=== PATIENT | female | born 1975 | race Caucasian/White ===

== ENCOUNTER 2016-11-15 23:08 | Emergency (ER) | payer BC ==
--- NOTE | 2016-11-15 23:12 | PDOC ---
History of Present Illness - General History Source: Patient Exam Limitations: No Limitations - History of Present Illness Initial Comments: 11/15/16 23:58 The patient is a 41 year old, kiswahili speaking, female who is 6 weeks , with no significant past medical history, presenting to the Emergency Department with vaginal bleeding. The patient reports that she was having sex with her boyfriend earlier tonight when she noticed vaginal bleeding. She admits that the bleeding was minimal and describes the blood as red. She admits that the bleeding has stopped since she arrived to the ED. She reports that her most recent ultrasound was last week, when she was reported as 6 weeks and 2 days . Her next ultrasound is scheduled for Friday. She is being followed by an OBGYN and has care. The patient denies abdominal pain, or vaginal pain. Patient denies dysuria, urinary frequency, and hematuria. Patient denies dizziness, or lightheadedness. Patient denies nausea, vomiting, and diarrhea. <Marce Wagoner - Last Filed: 11/15/16 23:58> <Vanesa Loo - Last Filed: 11/17/16 05:02> - General Stated Complaint: 6 WEEKS /BLEEDING Time Seen by Provider: 11/15/16 23:11 Past History <Marce Wagoner - Last Filed: 11/15/16 23:58> - Psycho/Social/Smoking Cessation Hx Anxiety: No Suicidal Ideation: No Smoking Status: No Smoking History: Never smoked Number of Cigarettes Smoked Daily: 0 Hx Alcohol Use: No Substance Use Type: None <Vanesa Loo - Last Filed: 11/17/16 05:02> - Past Medical History Allergies/Adverse Reactions: Allergies Allergy/AdvReac Type Severity Reaction Status Date / Time No Known Drug Allergies Allergy Verified 11/15/16 23:46 SEAFOOD Allergy Difficulty Uncoded 11/15/16 23:24 Breathing Home Medications: Ambulatory Orders NK [No Known Home Medication] 11/15/16 Review of Systems - Review of Systems Able to Perform ROS?: Yes Comments:: 11/15/16 23:58 GENERAL/CONSTITUTIONAL: No fever or chills. No weakness. HEAD, EYES, EARS, NOSE AND THROAT: No change in vision. No ear pain or discharge. No sore throat. CARDIOVASCULAR: No chest pain or shortness of breath. RESPIRATORY: No cough, wheezing, or hemoptysis. GASTROINTESTINAL: No nausea, vomiting, diarrhea or constipation. GENITOURINARY: + vaginal bleeding. No dysuria, frequency, or change in urination. MUSCULOSKELETAL: No joint or muscle swelling or pain. No neck or back pain. SKIN: No rash NEUROLOGIC: No headache, vertigo, loss of consciousness, or change in strength/ sensation. ENDOCRINE: No increased thirst. No abnormal weight change. HEMATOLOGIC/LYMPHATIC: No anemia, easy bleeding, or history of blood clots. ALLERGIC/IMMUNOLOGIC: No hives or skin allergy. <Marce Wagoner - Last Filed: 11/15/16 23:58> *Physical Exam - Vital Signs Last Vital Signs Temp Pulse Resp BP Pulse Ox 97.1 F L 99 H 20 126/84 99 11/15/16 23:24 11/15/16 23:24 11/15/16 23:24 11/15/16 23:24 11/15/16 23:24 - Physical Exam Comments: 11/15/16 23:59 GENERAL: Awake, alert, and fully oriented, in no acute distress HEAD: No signs of trauma EYES: PERRLA, EOMI, sclera anicteric, conjunctiva clear ENT: Auricles normal inspection, hearing grossly normal, nares patent, oropharynx clear without exudates. Moist mucosa NECK: Normal ROM, supple, no lymphadenopathy, JVD, or masses LUNGS: Breath sounds equal, clear to auscultation bilaterally. No wheezes, and no crackles HEART: Regular rate and rhythm, normal S1 and S2, no murmurs, rubs or gallops ABDOMEN: Soft, nontender, normoactive bowel sounds. No guarding, no rebound. No masses EXTREMITIES: Normal range of motion, no edema. No clubbing or cyanosis. No cords, erythema, or tenderness NEUROLOGICAL: Cranial nerves II through XII grossly intact. Normal speech, normal gait SKIN: Warm, Dry, normal turgor, no rashes or lesions noted. <Marce Wagoner - Last Filed: 11/15/16 23:58> ED Treatment Course - LABORATORY CBC & Chemistry Diagram: 11/16/16 00:01 11/16/16 00:01 <Vanesa Loo - Last Filed: 11/17/16 05:02> Medical Decision Making - Medical Decision Making 11/15/16 23:54 Pt is approx 6-7 weeks . Last week at her [employer] [employer], ultrasound showed a 6 week 2 day fetus. Tonight after sex, pt realized she was spotting and she is worried. SHe has no pain and no dysuria. She doesn't know her blood type. She has a normal exam. She will have her labs checked in the ER. I will not send her for US, as she has her next appointment on this Friday, and she will have another ultrasound at that time. 11/17/16 05:01 Rh positive <Vanesa Loo - Last Filed: 11/17/16 05:02> *DC/Admit/Observation/Transfer - Attestations Scribe Attestion: 11/15/16 23:59 Documentation prepared by Marce Wagoner, acting as clinical specialist medical device for Vanesa Loo MD. <Marce Wagoner - Last Filed: 11/15/16 23:58> - Discharge Dispostion Admit: No <Vanesa Loo - Last Filed: 11/17/16 05:02> Diagnosis at time of Disposition: Threatened - Discharge Dispostion Disposition: HOME Condition at time of disposition: Stable - Referrals Referrals: Naman Castano MD [Primary Care Provider] - - Patient Instructions Printed Discharge Instructions: DI for Threatened - Post Discharge Activity Work/School Note: Back to Work
[2016-11-15 23:28] VITALS: BP 126/84; PULSE 99; TEMP 97.1; BMI 27.3
[2016-11-16 00:24] LABS: BASOPHIL 0.5 % (0-2.0); EOSINOPHIL 0.9 % (0-4.5); MCH 29.5 pg (25.7-33.7); MCHC 34.1 g/dl (32.0-36.0); MEAN CELL VOLUME 86.5 fl (80-96); MEAN PLT VOLUME 10.3 fl (7.5-11.1); NEUTROPHILS 72.8 % (42.8-82.8); PLATELET COUNT 203 K/MM3 (134-434); WHITE BLOOD COUNT 8.8 K/mm3 (4.0-10.0)
[2016-11-16 00:43] LABS: INR 1.02 (0.82-1.09); PROTHROMBIN TIME (PATIENT) 11.2 SEC (9.98-11.88)
[2016-11-16 00:52] LABS: ALBUMIN 3.5 g/dl (3.4-5.0); ALK PHOS 79 U/L (45-117); ANION GAP 12 (8-16); BILIRUBIN,TOTAL 0.1 mg/dL (0.2-1.0); CALCIUM 8.7 mg/dL (8.5-10.1); CO2 24 mmol/L (21-32); CREATININE 0.9 mg/dL (0.55-1.02); GLUCOSE,RANDOM 121 mg/dL (74-106); SGOT/AST 21 U/L (15-37); SGPT/ALT 34 U/L (12-78)
[2016-11-16] MEDS ORDERED: MAG HYDROX/AL HYDROX/SIMETH 30 ML UNIT-DOSE CUP PO ONE (01:46)
[2016-11-16] MEDS ORDERED: MAG HYDROX/AL HYDROX/SIMETH 30 ML UNIT-DOSE CUP ONE (01:46)
== END 2016-11-16 02:18 | disposition home or self-care (01) ==
LOC: JER 23:08
DX: O20.0 Threatened abortion (principal); Z3A.01 Less than 8 weeks gestation of pregnancy
CPT/HCPCS: 36415; 80053; 84702; 85025; 85610; 85730; 86850; 86900; 86901; 99282-25

== ENCOUNTER 2017-07-01 17:55 | Inpatient (IN) | payer BC ==
[2017-07-01] MEDS ORDERED: BUTORPHANOL TARTRATE 1 MG/ML VIAL IVPB ONE (19:07)
[2017-07-01] MEDS ORDERED: PROMETHAZINE HCL 25 MG/1 ML VIAL IVPUSH ONE (19:07)
[2017-07-01] MEDS ORDERED: DINOPROSTONE 10 MG VAGINAL SUPPOSITORY VG ONE (19:09)
[2017-07-01 19:35] VITALS: BMI 32.8
--- NOTE | 2017-07-01 20:00 | HP ---
Past Medical History - Admission Chief Complaint: Here for labor induction. History of Present Illness: 41 y/o with SIUP at 40.1 weeks gestation here for labor induction. 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 NO current active lesions. Pt also AMA. Elevated 1'GTT elevated, 3'GTT WNL. Followed with MFM throughout . EDC 06/30/17. h/o in 1998 History Source: Patient, Medical Record Limitations to Obtaining History: No Limitations - Past Medical History Cardiovascular: No: AFIB, HTN Pulmonary: No: Asthma, COPD Gastrointestinal: No: GERD, Ulcerative Colitis Hepatobiliary: No: Hepatitis B, Hepatitis C Renal/: No: UTI ...: 2 ...Para: 1 ...Term: 1 ...: 0 ...Spon : 0 ...Induced : 0 ...Multiple Gestation: 0 ...LMP: 10/07/16 ... Weeks Gestation by Dates: 38.1 ...EDC by Dates: 07/14/17 ...EDC by Sono: 06/30/17 Heme/Onc: No: Anemia, Sickle Cell Disease Infectious Disease: Yes: STD's (HSV 2). No: HIV Psych: No: Bipolar, Depression Endocrine: No: Diabetes Mellitus, Hyperthyroidism - Past Surgical History Past Surgical History: Yes: None Hx Myomectomy: No Hx Transabdominal Cerclage: No - Smoking History Smoking history: Never smoked Have you smoked in the past 12 months: No Aproximately how many cigarettes per day: 0 - Alcohol/Substance Use Hx Alcohol Use: No - Social History Usual Living Arrangement: Yes: With Spouse History of Recent Travel: No Home Medications - Allergies Allergies/Adverse Reactions: Allergies Allergy/AdvReac Type Severity Reaction Status Date / Time No Known Drug Allergies Allergy Verified 07/01/17 18:36 SEAFOOD Allergy Difficulty Uncoded 07/01/17 18:36 Breathing - Home Medications Home Medications: Ambulatory Orders Ferrous Gluconate [Iron] 256 mg PO DAILY 07/01/17 Vit No.130/Iron/FA [ Vitamins] 1 each PO DAILY 07/01/17 Valacyclovir HCl [Valtrex -] 500 mg PO BID 07/01/17 Review of Systems - Review of Systems Constitutional: reports: No Symptoms Eyes: reports: No Symptoms HENT: reports: No Symptoms Neck: reports: No Symptoms Cardiovascular: reports: No Symptoms Respiratory: reports: No Symptoms Gastrointestinal: reports: No Symptoms Genitourinary: reports: No Symptoms Breasts: reports: No Symptoms Reported Musculoskeletal: reports: No Symptoms Integumentary: reports: No Symptoms Neurological: reports: No Symptoms Endocrine: reports: No Symptoms Hematology/Lymphatic: reports: No Symptoms Psychiatric: reports: No Symptoms Physical Exam - Maternity Vital Signs: Vital Signs Temperature 98.3 F 07/01/17 18:41 Pulse Rate 104 H 07/01/17 18:41 Respiratory Rate 20 07/01/17 18:41 Blood Pressure 108/60 07/01/17 18:41 O2 Sat by Pulse Oximetry (%) Constitutional: Yes: Well Nourished, No Distress, Calm Eyes: Yes: Conjunctiva Clear, EOM Intact HENT: Yes: Atraumatic, Normocephalic Neck: Yes: Supple, Trachea Midline Cardiovascular: Yes: Regular Rate and Rhythm Lungs: Clear to auscultation - Abdominal Exam/OB Fundal Height: 40 Number of Fetuses: Single Presentation: Vertex Contractions: No Monitor Mode: External Category: I Accelerations: Uniform Decelerations: None - Vaginal Exam/OB Vaginal Bleediing: No Dilatation (cm): 0 Effacement (%): 0 Amniotic Membrane Status: Intact Presentation: Vertex/Position Station: -4 - Physical Exam Psychiatric: Yes: Alert, Oriented Hemorrhage Risk Assessment - Risk Factors Medium Risk Factors: Yes: None High Risk Factors: Yes: None Risk Score: 1 Risk Level: Medium Risk Problem List - Problems (1) Advanced maternal age (AMA), 40 years or greater Code(s): [id number] - (2) Term Code(s): Z34.80 - ENCOUNTER FOR SUPRVSN OF NORMAL , UNSP TRIMESTER (3) HSV-2 infection complicating Code(s): O98.519 - OTHER VIRAL DISEASES COMPLICATING , UNSP TRIMESTER; B00.9 - HERPESVIRAL INFECTION, UNSPECIFIED Assessment/Plan 41 y/o with SIUP at 40.1 weeks, IOL - FHTS cat 1 - IOL, s/p cervidil placement at 1945, re evaluate at 7:45 am - AMA - HSV 2 - on valtrex suppression, no active lesions - GBS positive, for ampicillin when in labor
[2017-07-01] MEDS ORDERED: TUBERCULIN PPD 5 TU/0.1ML SYRINGE (IN PATIENT USE ONLY) ID ONE (20:30)
[2017-07-01 20:38] LABS: BASOPHIL 0.1 % (0-2.0); EOSINOPHIL 0.6 % (0-4.5); MCH 30.7 pg (25.7-33.7); MCHC 34.4 g/dl (32.0-36.0); MEAN CELL VOLUME 89.3 fl (80-96); MEAN PLT VOLUME 9.9 fl (7.5-11.1); NEUTROPHILS 71.5 % (42.8-82.8); PLATELET COUNT 148 K/MM3 (134-434); WHITE BLOOD COUNT 7.5 K/mm3 (4.0-10.0)
[2017-07-01 21:07] LABS: INR 0.99 (0.82-1.09); PROTHROMBIN TIME (PATIENT) 11.2 SEC (9.98-11.88)
[2017-07-01 21:09] LABS: ACTIVATED PTT 25.2 SECONDS (26.9-34.4)
[2017-07-01 21:15] LABS: ANION GAP 9 (8-16); CALCIUM 8.6 mg/dL (8.5-10.1); CO2 22 mmol/L (21-32); CREATININE 0.5 mg/dL (0.55-1.02); GLUCOSE,RANDOM 123 mg/dL (74-106)
[2017-07-02] MEDS ORDERED: AMPICILLIN - 2 GM/100 ML BAG IVPB ONE (08:00)
--- NOTE | 2017-07-02 09:13 | PN ---
Ante-Partal Exam - Subjective Subjective: Pt with mild contractions cervidil out at 755 am Vital Signs: Vital Signs Temperature 98.2 F 07/02/17 07:00 Pulse Rate 72 07/02/17 07:00 Respiratory Rate 18 07/02/17 07:00 Blood Pressure 107/58 07/02/17 07:00 O2 Sat by Pulse Oximetry (%) Bleeding: No Headache: No Visual changes: No Right upper quadrant pain: No - Contractions Contractions: Yes Regularity: Irregular Intensity: Mild Monitor Mode: External - Exam during Labor Variability: Moderate Category: I Monitor Accelerations: Present Monitor Decelerations: None Exam: Vaginal Dilatation (cm): 1 Effacement (%): 50 Amniotic Membrane Status: Intact Presentation: Vertex Station: -2 - Assessment/Plan Assessment/Plan: Elderly multigravida 40 week Cat1 SP Cervidil Hx of HSV on valtrex Plan Start Pitocin this morn stadol prn
[2017-07-02] MEDS ORDERED: BUTORPHANOL TARTRATE 1 MG/ML VIAL IVPUSH ONE (09:15)
[2017-07-02] MEDS: DEXTROSE 5%-LACTATED RINGERS 1,000 ML IV SCH ×2 (09:15→16:09)
[2017-07-02] MEDS ORDERED: PROMETHAZINE HCL 25 MG/1 ML VIAL IVPUSH ONE (09:18)
[2017-07-02] MEDS ORDERED: OXYTOCIN 15 UNITS/ LR 250 ML 15 UNIT/250 ML INFUS.BAG IVPB SCH (10:15)
[2017-07-02] MEDS ORDERED: AMPICILLIN - 1 GM/100 ML BAG IVPB SCH (12:00)
[2017-07-02] MEDS: AMPICILLIN - 1 GM/100 ML BAG IVPB SCH ×2 (17:29→17:30)
[2017-07-02] MEDS ORDERED: AMPICILLIN - 1 GM in SODIUM CHLORIDE 100 ML IVPB SCH (18:00)
--- NOTE | 2017-07-02 18:30 | PN ---
Ante-Partal Exam - Subjective Subjective: Pt feeling some pain with contractions. Vital Signs: Vital Signs Temperature 97.8 F 07/02/17 18:00 Pulse Rate 83 07/02/17 18:00 Respiratory Rate 18 07/02/17 18:00 Blood Pressure 110/67 07/02/17 18:00 O2 Sat by Pulse Oximetry (%) Bleeding: No Headache: No Visual changes: No Right upper quadrant pain: No Pain (scale 1-10): 3 - Contractions Contractions: Yes Regularity: Regular Intensity: Mild/Mod Monitor Mode: External - Exam during Labor Heart Rate: 140 Variability: Moderate Category: I Monitor Accelerations: Present Monitor Decelerations: None Exam: Vaginal Dilatation (cm): 1 Effacement (%): 0 Amniotic Membrane Status: Intact Presentation: Vertex Station: -4 - Intrapartum Hemorrhage Risk Medium Risk Factors: None High Risk Factors: None Risk Score: 0 Risk Level: Low Risk - Assessment/Plan Assessment/Plan: 41 y/o with SIUP at 40.2 weeks, IOL - FHTS cat 1 - IOL, s/p cervidil now on pitocin. Little cervical change. Will keep on pitocin overnight, if no change by a.m. will try cervidil again - GBS positive, for ampicillin once active or ROM
[2017-07-02] MEDS: valACYclovir HCL 500 MG TABLET (FP) PO SCH (22:03)
[2017-07-03] MEDS: DEXTROSE 5%-LACTATED RINGERS 1,000 ML IV SCH ×2 (01:09→06:14)
[2017-07-03] MEDS ORDERED: DINOPROSTONE 10 MG VAGINAL SUPPOSITORY VG ONE (06:47)
[2017-07-03] MEDS: valACYclovir HCL 500 MG TABLET (FP) PO SCH (10:00)
--- NOTE | 2017-07-03 10:42 | PN ---
Ante-Partal Exam - Subjective Subjective: Pt sp Pitocin & cervidil with no progress Vital Signs: Vital Signs Temperature 98.1 F 07/03/17 10:00 Pulse Rate 93 H 07/03/17 10:00 Respiratory Rate 18 07/03/17 10:00 Blood Pressure 136/59 07/03/17 10:00 O2 Sat by Pulse Oximetry (%) Bleeding: No Headache: No Visual changes: No Right upper quadrant pain: No - Contractions Contractions: Yes Regularity: Irregular Monitor Mode: External - Exam during Labor Variability: Moderate Category: I Monitor Decelerations: None Exam: Vaginal (head is oblique) Dilatation (cm): 1 Effacement (%): 50 Amniotic Membrane Status: Intact Presentation: Vertex (oblique) Station: -3 - Assessment/Plan Assessment/Plan: iup at 40 week AMA failed induction Plan WIll do CS due to failed induction notify Peds notify anesthesia
[2017-07-03] MEDS ORDERED: BENZOCAINE 28 GM HEMORRHOIDAL OINTMENT PR PRN (10:43)
[2017-07-03] MEDS ORDERED: IBUPROFEN 800 MG/8 ML IJ IVPB PRN (10:43)
[2017-07-03] MEDS ORDERED: METHYLERGONOVINE MALEATE 0.2 MG/1 ML AMP IM PRN (10:43)
[2017-07-03] MEDS ORDERED: WITCH HAZEL 50% (TUCKS) 40 PAD/JAR PAD TP PRN (10:43)
[2017-07-03] MEDS ORDERED: diphenhydrAMINE HCL 25 MG CAPSULE (FP) PO PRN (10:43)
[2017-07-03] MEDS ORDERED: BENZOCAINE 20% 57 GM BOTTLE TP PRN (10:43)
[2017-07-03] MEDS ORDERED: D5W-LR W/ 20 UNITS OXYTOCIN 20 UNIT/1,000 ML INFUS.BAG IV SCH (10:45)
[2017-07-03] MEDS ORDERED: CITRIC ACID/SODIUM CITRATE 30 ML UNIT-DOSE CUP PO ONE (14:30)
[2017-07-03] MEDS ORDERED: ELECTROLYTE-148 SOLN 500 ML IV SCH (14:30)
[2017-07-03] MEDS ORDERED: ELECTROLYTE-148 SOLN 1,000 ML IV SCH (15:00)
[2017-07-03] MEDS: CITRIC ACID/SODIUM CITRATE 30 ML UNIT-DOSE CUP PO ONE ×2 (15:16→15:17)
[2017-07-03] MEDS ORDERED: morphine SULFATE/Preservative Free 0.5 MG/ML (1cc Syringe) SPIN ONE (17:32)
[2017-07-03] MEDS: OXYTOCIN 20 UNITS in 0.9% NS 20 UNIT/1,000 ML INFUS.BAG IV SCH (18:25)
--- NOTE | 2017-07-03 18:31 | OP ---
Operative Note - Note: Operative Date: 07/03/17 Pre-Operative Diagnosis: failed IOL, SIUP at 40.4 weeks Operation: primary low transverse delivery Findings: large globular uterus normal b/l tubes and ovaries Post-Operative Diagnosis: Same as Pre-op Surgeon: Mechelle Scott Spinner Operator: Adama De La Cruz Anesthesiologist/BACTERIOLOGIST FOOD: Surendra Hogan Anesthesia: Spinal Specimens Removed: placenta, cord blood sample Estimated Blood Loss (mls): 600 Operative Report Dictated: Yes
[2017-07-03] MEDS ORDERED: ONDANSETRON 4 MG/2 ML VIAL IVPUSH PRN (18:32)
[2017-07-04] MEDS: valACYclovir HCL 500 MG TABLET (FP) PO SCH ×3 (00:17→22:17)
[2017-07-04] MEDS: ACETAMINOPHEN 325 MG TABLET (FP) PO PRN ×4 (00:29→19:12)
[2017-07-04] MEDS: OXYTOCIN 20 UNITS in 0.9% NS 20 UNIT/1,000 ML INFUS.BAG IV SCH ×2 (01:30→09:38)
[2017-07-04] MEDS: SIMETHICONE 80 MG TAB.CHEW (FP) PO PRN ×3 (05:39→19:12)
[2017-07-04] MEDS: IBUPROFEN 600 MG TABLET (FP) PO PRN ×3 (05:39→19:13)
[2017-07-04 07:52] LABS: BASOPHIL 0.3 % (0-2.0); EOSINOPHIL 0.3 % (0-4.5); MCH 29.4 pg (25.7-33.7); MCHC 32.4 g/dl (32.0-36.0); MEAN CELL VOLUME 90.9 fl (80-96); MEAN PLT VOLUME 9.9 fl (7.5-11.1); PLATELET COUNT 104 K/MM3 (134-434); RDW 17.2 % (11.6-15.6)
--- NOTE | 2017-07-04 08:54 | PN ---
Post Progress Note - Subjective Subjective: Pt doing well this a.m. Pain controlled, tolerating diet. Not yet ambulating. Payne catheter with clear yellow urine. No CP/SOB/F/C/GOLDMAN or other complaints. Type of Delivery: Primary C/S Vital Signs: Vital Signs Temperature 98.8 F 07/04/17 05:30 Pulse Rate 88 07/04/17 05:30 Respiratory Rate 20 07/04/17 06:21 Blood Pressure 112/56 07/04/17 05:30 O2 Sat by Pulse Oximetry (%) 99 07/03/17 19:30 Uterus: Yes: Fundus @ umbilicus Incision: Yes: Dressing dry and intact Abdomen/GI: Yes: Abdomen soft, Passing flatus, Tolerating PO. No: Abdominal Distention, Tender Lochia: Yes: Rubra Lochia, amount: Small Extremities: Yes: Calves non-tender. No: Edema Perineum: Yes: Intact Activity: Ambulating - Labs Labs: CBC WBC 11.0 K/mm3 (4.0-10.0) H D 07/04/17 06:30 RBC 3.96 M/mm3 (3.60-5.2) 07/04/17 06:30 Hgb 11.7 GM/dL (10.7-15.3) 07/04/17 06:30 Hct 36.0 % (32.4-45.2) 07/04/17 06:30 MCV 90.9 fl (80-96) 07/04/17 06:30 MCH 29.4 pg (25.7-33.7) 07/04/17 06:30 MCHC 32.4 g/dl (32.0-36.0) 07/04/17 06:30 RDW 17.2 % (11.6-15.6) H 07/04/17 06:30 Plt Count 104 K/MM3 (134-434) L D 07/04/17 06:30 MPV 9.9 fl (7.5-11.1) 07/04/17 06:30 Neutrophils % 83.0 % (42.8-82.8) H 07/04/17 06:30 Lymphocytes % 10.0 % (8-40) D 07/04/17 06:30 Monocytes % 6.4 % (3.8-10.2) 07/04/17 06:30 Eosinophils % 0.3 % (0-4.5) 07/04/17 06:30 Basophils % 0.3 % (0-2.0) 07/04/17 06:30 Problem List - Problems (1) Advanced maternal age (AMA), 40 years or greater Code(s): [id number] - (2) Term Code(s): Z34.80 - ENCOUNTER FOR SUPRVSN OF NORMAL , UNSP TRIMESTER (3) HSV-2 infection complicating Code(s): O98.519 - OTHER VIRAL DISEASES COMPLICATING , UNSP TRIMESTER; B00.9 - HERPESVIRAL INFECTION, UNSPECIFIED (4) delivery delivered Code(s): O82 - ENCOUNTER FOR DELIVERY WITHOUT INDICATION Assessment/Plan 41 y/o POD#1 s/p primary delivery for failed induction of labor - AFVSS - Hgb 11.7 post op - advance diet as tolerated - encourage ambulation - routine care
[2017-07-04] MEDS: ENOXAPARIN NA (PORCINE) 40 MG/0.4 ML DISP.SYRIN SQ SCH (09:41)
--- NOTE | 2017-07-04 10:31 | PN ---
Progress Note (short form) - Note Progress Note: ANESTHESIOLOGY POST OP NOTE S: S/P C SECTION UNDER SPINAL ANESTHESIA WITH DURAMORPH FOR POST OP PAIN CONTROL. PATIENT REPORTS PAIN CONTROLLED, NO OTHER ADVERSE EFFECT OF ANESTHETIC O: NEUROLOGICALLY IN TACT Last Vital Signs Temp Pulse Resp BP Pulse Ox 98.8 F 88 20 112/56 99 07/04/17 05:30 07/04/17 05:30 07/04/17 06:21 07/04/17 05:30 07/03/17 19:30 A/P: NO ADVERSE EFFECT, PAIN CONTROLLED, DEPT OF ANESTHESIA WILL SIGN OFF CASE AT THIS TIME
[2017-07-04] MEDS ORDERED: oxyCODONE HCL 5 MG TABLET PO PRN ×2 (10:43)
[2017-07-04] MEDS ORDERED: BISACODYL 10 MG SUPP.RECT RC PRN (10:44)
--- NOTE | 2017-07-05 09:48 | PN ---
Post Progress Note - Subjective Subjective: 41 yo Para 3 status post repeat , seen and evaluated. Doing well, no complaints. Post Day: 2 Type of Delivery: Primary C/S Vital Signs: Vital Signs Temperature 99.1 F 07/05/17 08:10 Pulse Rate 96 H 07/05/17 08:10 Respiratory Rate 20 07/05/17 08:10 Blood Pressure 119/68 07/05/17 08:10 O2 Sat by Pulse Oximetry (%) 99 07/03/17 19:30 Breast Exam: Yes: Soft Incision: Yes: Dressing dry and intact Abdomen/GI: Yes: Abdomen soft, Tolerating PO Lochia: Yes: Rubra Lochia, amount: Small Extremities: Yes: Calves non-tender Perineum: Yes: Intact Activity: Ambulating - Labs Labs: CBC WBC 11.0 K/mm3 (4.0-10.0) H D 07/04/17 06:30 RBC 3.96 M/mm3 (3.60-5.2) 07/04/17 06:30 Hgb 11.7 GM/dL (10.7-15.3) 07/04/17 06:30 Hct 36.0 % (32.4-45.2) 07/04/17 06:30 MCV 90.9 fl (80-96) 07/04/17 06:30 MCH 29.4 pg (25.7-33.7) 07/04/17 06:30 MCHC 32.4 g/dl (32.0-36.0) 07/04/17 06:30 RDW 17.2 % (11.6-15.6) H 07/04/17 06:30 Plt Count 104 K/MM3 (134-434) L D 07/04/17 06:30 MPV 9.9 fl (7.5-11.1) 07/04/17 06:30 Neutrophils % 83.0 % (42.8-82.8) H 07/04/17 06:30 Lymphocytes % 10.0 % (8-40) D 07/04/17 06:30 Monocytes % 6.4 % (3.8-10.2) 07/04/17 06:30 Eosinophils % 0.3 % (0-4.5) 07/04/17 06:30 Basophils % 0.3 % (0-2.0) 07/04/17 06:30 Assessment/Plan Status post repeat Stable Continue routine post op care
[2017-07-05] MEDS: ENOXAPARIN NA (PORCINE) 40 MG/0.4 ML DISP.SYRIN SQ SCH (09:58)
[2017-07-05] MEDS: IBUPROFEN 600 MG TABLET (FP) PO PRN ×2 (09:59→20:30)
[2017-07-05] MEDS: valACYclovir HCL 500 MG TABLET (FP) PO SCH ×2 (09:59→21:50)
[2017-07-05] MEDS: ACETAMINOPHEN 325 MG TABLET (FP) PO PRN ×2 (10:00→20:31)
[2017-07-05] MEDS: SIMETHICONE 80 MG TAB.CHEW (FP) PO PRN ×2 (10:01→20:31)
[2017-07-05] MEDS ORDERED: SENNOSIDES/DOCUSATE COMBO (SENNA PLUS) TABLET (UD) PO PRN (22:00)
--- NOTE | 2017-07-06 06:06 | DS ---
Physical Exam-STONE GLUER Vital Signs: Vital Signs Temperature 98.8 F 07/05/17 22:00 Pulse Rate 93 H 07/05/17 22:00 Respiratory Rate 18 07/05/17 22:00 Blood Pressure 118/76 07/05/17 22:00 O2 Sat by Pulse Oximetry (%) 99 07/03/17 19:30 Constitutional: Yes: Well Nourished Eyes: Yes: Conjunctiva Clear HENT: Yes: Atraumatic Neck: Yes: Supple Cardiovascular: Yes: Regular Rate and Rhythm Respiratory: Yes: Regular, CTA Bilaterally Gastrointestinal: Yes: Normal Bowel Sounds Vaginal Exam: Yes: Normal Cervix: Yes: Normal Uterus: Yes: Firm ....Post : Yes: Uterus firm, Moderate lochia serosa Breast(s): Yes: WNL Neurological: Yes: Alert, Oriented ...Motor Strength: WNL Psychiatric: Yes: Alert, Oriented Labs: CBC, BMP 07/04/17 06:30 07/01/17 17:15 Delivery - Delivery Type of Anesthesia: Spinal Episiotomy/Laceration: None EBL (cc): 600 Delivery, Single - Stages of Labor Date of Delivery: 07/03/17 Time of Delivery: 17:43 Time Placenta Delivered: 17:44 - Condition of Flight Hostess/Scrap Shear Operator Present: Yes Name: Tamara Lugo Infant Gender: Male Weight: 8 lb 4 oz Position: Left, OA Total Hours ROM (Hrs/Mins): 0/2 - 1 Minute Total Score: 9 5 Minutes Total Score: 9 - Feeding Plan Initial Plan: Exclusive throughout hospitalization Discharge Summary Reason For Visit: LABOR INDUCTION Current Active Problems Advanced maternal age (AMA), 40 years or greater (Acute) delivery delivered (Acute) HSV-2 infection complicating (Acute) Term (Acute) Procedures: Principal: Spontaneous vaginal delivery Hospital Course: Routine care Condition: Good - Instructions Diet, Activity, Other Instructions: Regular diet No driving, no lifting x 4 weeks F/U with MD in one week Referrals: Mechelle Scott DO [Staff Physician] - Disposition: HOME - Home Medications Comprehensive Discharge Medication List: Ambulatory Orders Ferrous Gluconate [Iron] 256 mg PO DAILY 07/01/17 Vit No.130/Iron/FA [ Vitamins] 1 each PO DAILY 07/01/17 Valacyclovir HCl [Valtrex -] 500 mg PO BID 07/01/17
[2017-07-06 08:13] VITALS: BP 119/74; PULSE 79; TEMP 97.8
[2017-07-06 08:56] LABS: MCH 30.2 pg (25.7-33.7); MCHC 33.2 g/dl (32.0-36.0); MEAN CELL VOLUME 90.8 fl (80-96); MEAN PLT VOLUME 9.6 fl (7.5-11.1); PLATELET COUNT 140 K/MM3 (134-434); WHITE BLOOD COUNT 8.1 K/mm3 (4.0-10.0)
[2017-07-06] MEDS: ACETAMINOPHEN 325 MG TABLET (FP) PO PRN (09:09)
[2017-07-06] MEDS: IBUPROFEN 600 MG TABLET (FP) PO PRN (09:09)
[2017-07-06] MEDS: SIMETHICONE 80 MG TAB.CHEW (FP) PO PRN (09:09)
[2017-07-06] MEDS: ENOXAPARIN NA (PORCINE) 40 MG/0.4 ML DISP.SYRIN SQ SCH (09:09)
--- NOTE | 2017-07-09 15:50 | PATH ---
Surgical Pathology Report Patient Name: RICHARD LAU [facility]. Rec. #: [id number] /Age/Gender: 1975 (Age: 41) / F Account: [id number] Location: [facility] OBS/SERVICE CAPTAIN Taken: 07/03/2017 Received: 07/04/2017 Reported: 07/09/2017 Physicians: Mechelle Scott M.D. Specimen(s) Received PLACENTA Clinical History , 40.1 weeks Positive GBS, failed induction Final Diagnosis PLACENTA, DELIVERY: FOCALLY DISRUPTED THIRD TRIMESTER PLACENTA WITH THREE VESSEL UMBILICAL CORD AND UNREMARKABLE PLACENTAL MEMBRANES. Electronically Signed Jens Engel M.D. Gross Description The specimen is received fresh labeled placenta and is a 484 gram, 17.5 x 15.0 x 2.2 cm. placenta with attached membranes and umbilical cord. The attached membranes are mcdowell, translucent with focal opacities and insert marginally. The umbilical cord measures 32 cm. in length and averages 0.9 cm. in diameter. The cord inserts eccentrically, 3.5 cm. to the nearest margin. No true knots or strictures are identified. Cut surface of the umbilical cord reveals 3 vessels. The surface is moreno blue with moderate fibrin deposition and appropriate caliber vessels. The maternal surface is red-brown with focal defects. Sectioning reveals red-brown, spongy parenchyma. No lesions are identified. Mine Development Engineer sections are submitted in three cassettes as follows: 1- membrane rolls and umbilical cord; 2-3- full thickness sections of placenta. 07/08/2017 [facility]07/08/2017
== END 2017-07-06 12:35 | disposition home or self-care (01) | DRG 765 ==
LOC: JLDR 17:55 → J3W 07-03 20:10
PROVIDERS: ADMIT Obstetrics & Gynecology; ATTEND Obstetrics & Gynecology
PROC: 3E0P7VZ Introduction of Hormone into Female Reproductive, Via Natural or Artificial Opening (ICD-10-PCS; principal; 2017-07-01)
PROC: 10D00Z1 Extraction of Products of Conception, Low, Open Approach (ICD-10-PCS; 2017-07-03)
DX: O48.0 Post-term pregnancy (principal); O98.52 Other viral diseases complicating childbirth; B00.89 Other herpesviral infection; O62.0 Primary inadequate contractions; Z3A.40 40 weeks gestation of pregnancy; Z37.0 Single live birth
CPT/HCPCS: 36415; 80048; 85025; 85027; 85610; 85730; 86593; 86850; 86900; 86901

== ENCOUNTER 2018-01-22 11:16 | Emergency (ER) | payer BC, OTHER ==
[2018-01-22 11:32] VITALS: BMI 26.0
--- NOTE | 2018-01-22 11:40 | PDOC ---
History of Present Illness - General Chief Complaint: Vaginal Bleeding Stated Complaint: BLEEDING (5 WKS ) Time Seen by Provider: 01/22/18 11:39 - History of Present Illness Initial Comments: 01/22/18 11:57 Ms. Griggs is a 42 yo female at approximately 5 weeks gestation (LMP December 03) who presents for evaluation of a small amount of blood noted today while wiping. She had previously been evaluated 2 days ago at the [facility] and was told to follow-up as needed for any blood or pain. She is unsure if they were able to confirm IUP. Denies any current pain however is nervous and would like to be evaluated. The patient denies chest pain, shortness of breath, headache and dizziness. Denies fever, chills, nausea, vomit, diarrhea and constipation. Denies dysuria, frequency, urgency and hematuria. Allergies: NKDA Past History - Past Medical History Allergies/Adverse Reactions: Allergies Allergy/AdvReac Type Severity Reaction Status Date / Time SEAFOOD Allergy Difficulty Uncoded 01/22/18 11:29 Breathing Home Medications: Ambulatory Orders Vit No.130/Iron/Folic [ Vitamins] 1 each PO DAILY 07/01/17 Asthma: No Cancer: No Cardiac Disorders: No COPD: No DVT: No Diabetes: No HTN: No Seizures: No Thyroid Disease: No - Reproductive History (#): 3 Para: 1 - Suicide/Smoking/Psychosocial Hx Smoking Status: No Smoking History: Never smoked Have you smoked in the past 12 months: No Number of Cigarettes Smoked Daily: 0 Information on smoking cessation initiated: No Hx Alcohol Use: No Drug/Substance Use Hx: No Substance Use Type: None Hx Substance Use Treatment: No Review of Systems - Review of Systems Comments:: 01/22/18 12:02 GENERAL/CONSTITUTIONAL: No fever or chills. No weakness. HEAD, EYES, EARS, NOSE AND THROAT: No change in vision. No ear pain or discharge. No sore throat. CARDIOVASCULAR: No chest pain or shortness of breath RESPIRATORY: No cough, wheezing, or hemoptysis. GASTROINTESTINAL: No nausea, vomiting, diarrhea or constipation. GENITOURINARY: No dysuria, frequency, or change in urination. MUSCULOSKELETAL: No joint or muscle swelling or pain. No neck or back pain. SKIN: No rash NEUROLOGIC: No headache, vertigo, loss of consciousness, or change in strength/ sensation. ENDOCRINE: No increased thirst. No abnormal weight change HEMATOLOGIC/LYMPHATIC: No anemia, easy bleeding, or history of blood clots. ALLERGIC/IMMUNOLOGIC: No hives or skin allergy. *Physical Exam - Vital Signs Last Vital Signs Temp Pulse Resp BP Pulse Ox 98.6 F 79 18 125/51 100 01/22/18 11:29 01/22/18 11:29 01/22/18 11:29 01/22/18 11:29 01/22/18 11:29 - Physical Exam Comments: 01/22/18 12:02 GENERAL: Awake, alert, and fully oriented, in no acute distress HEAD: No signs of trauma, normocephalic, atraumatic EYES: PERRLA, EOMI, sclera anicteric, conjunctiva clear ENT: Auricles normal inspection, hearing grossly normal, nares patent, oropharynx clear without exudates. Moist mucosa NECK: Normal ROM, supple, no lymphadenopathy, JVD, or masses LUNGS: No distress, speaks full sentences, clear to auscultation bilaterally HEART: Regular rate and rhythm, normal S1 and S2, no murmurs, rubs or gallops, peripheral pulses normal and equal bilaterally. ABDOMEN: Soft, nontender, normoactive bowel sounds. No guarding, no rebound. No masses EXTREMITIES: Normal inspection, Normal range of motion, no edema. No clubbing or cyanosis. NEUROLOGICAL: Cranial nerves II through XII grossly intact. Normal speech, normal gait, no focal sensorimotor deficits SKIN: Warm, Dry, normal turgor, no rashes or lesions noted. : No CMT, no adnexal tenderness. Os closed, no blood noted. ED Treatment Course - LABORATORY CBC & Chemistry Diagram: 01/22/18 12:05 01/22/18 12:05 Medical Decision Making - Medical Decision Making 01/22/18 15:11 Ms. Griggs is a 42 yo female w/ pmh as described who presents for evaluation of spotting noted in . Patient exam non-concerning as above. Transvaginal US sent to evaluate for IUP. 01/22/18 15:12 US noted irregular intrauterine gestational sac containing probably fetl pole w/ out definite yolk sac. Unable to identify heart rate. Findings suspicious for failed early . Re-evaluation recommended in 7-13 days. Beta as below. Patient Rh + on blood type so no rhogam administered. Discharging patient w/ instructions to f/u with [facility] for further evaluation. Patient verbalized understanding and agreement and will comply. Laboratory Results - last 24 hr 01/22/18 01/22/18 01/22/18 12:05 12:05 12:05 WBC 5.6 D RBC 4.19 D Hgb 12.4 D Hct 36.9 D MCV 88.0 MCH 29.6 MCHC 33.7 RDW 13.8 D Plt Count 223 D MPV 9.1 Absolute Neuts (auto) 3.5 Neutrophils % 61.6 D Lymphocytes % 30.2 D Monocytes % 6.2 Eosinophils % 1.5 D Basophils % 0.5 Nucleated RBC % 0 Sodium 135 L Potassium 4.0 Chloride 104 Carbon Dioxide 24 Anion Gap 7 L BUN 10 Creatinine 0.6 Creat Clearance w eGFR > 60 Random Glucose 87 Calcium 9.7 Total Bilirubin 0.3 D AST 15 ALT 24 Alkaline Phosphatase 92 Total Protein 7.6 Albumin 4.1 Beta HCG, Quant 6875.7 Urine Color Urine Appearance Urine pH Ur Specific [place] Urine Protein Urine Glucose (UA) Urine Ketones Urine Blood Urine Nitrite Urine Bilirubin Urine Urobilinogen Ur Leukocyte Esterase Urine WBC (Auto) Urine RBC (Auto) Ur Epithelial Cells Blood Type A POSITIVE Antibody Screen Negative 01/22/18 12:30 WBC RBC Hgb Hct MCV MCH MCHC RDW Plt Count MPV Absolute Neuts (auto) Neutrophils % Lymphocytes % Monocytes % Eosinophils % Basophils % Nucleated RBC % Sodium Potassium Chloride Carbon Dioxide Anion Gap BUN Creatinine Creat Clearance w eGFR Random Glucose Calcium Total Bilirubin AST ALT Alkaline Phosphatase Total Protein Albumin Beta HCG, Quant Urine Color Ltyellow Urine Appearance Slcloudy Urine pH 6.0 Ur Specific [place] 1.009 Urine Protein Negative Urine Glucose (UA) Negative Urine Ketones Negative Urine Blood 2+ H Urine Nitrite Negative Urine Bilirubin Negative Urine Urobilinogen Negative Ur Leukocyte Esterase Negative Urine WBC (Auto) 1 Urine RBC (Auto) 1 Ur Epithelial Cells Rare Blood Type Antibody Screen *DC/Admit/Observation/Transfer Diagnosis at time of Disposition: Bleeding in early - Discharge Dispostion Disposition: HOME - Referrals Referrals: Naman Castano MD [Primary Care Provider] - Mechelle Scott DO [Staff Physician] - - Patient Instructions Printed Discharge Instructions: DI for Vaginal Bleeding During Additional Instructions: Please follow-up with [facility] as discussed. Return to ER if any increase in bleeding, pain, fever, discharge, or other concerning symptoms. - Post Discharge Activity
[2018-01-22 12:26] LABS: BASO % 0.5 % (0-2.0); EOS % 1.5 % (0-4.5); HEMATOCRIT 36.9 % (32.4-45.2); HEMOGLOBIN 12.4 GM/dL (10.7-15.3); LYMPH % 30.2 % (8-40); MCH 29.6 pg (25.7-33.7); MCHC 33.7 g/dl (32.0-36.0); MEAN PLT VOLUME 9.1 fl (7.5-11.1); MONO % 6.2 % (3.8-10.2); NEUT % 61.6 % (42.8-82.8); PLATELET COUNT 223 K/MM3 (134-434); RBC 4.19 M/mm3 (3.60-5.2); RDW 13.8 % (11.6-15.6); WHITE BLOOD COUNT 5.6 K/mm3 (4.0-10.0)
[2018-01-22 12:53] LABS: CHLORIDE 104 mmol/L (98-107); SODIUM 135 mmol/L (136-145)
[2018-01-22 12:58] LABS: URINE APPEARANCE SLCLOUDY; URINE BILIRUBIN NEGATIVE (<2.0 mg/dL); URINE BLOOD 2+ (NEGATIVE); URINE COLOR LTYELLOW; URINE GLUCOSE (UA) NEGATIVE (NEGATIVE); URINE KETONE NEGATIVE (NEGATIVE); URINE LEUK ESTERASE NEGATIVE (NEGATIVE); URINE NITRITE NEGATIVE (NEGATIVE); URINE PROTEIN NEGATIVE (NEGATIVE); URINE UROBILINOGEN NEGATIVE mg/dL (0.2-1.0)
[2018-01-22 13:04] LABS: EPI CELLS RARE /HPF (FEW)
--- NOTE | 2018-01-22 13:08 | PDOC ---
Attending Attestation - Resident Resident Name: Arley Fletcher - ED Attending Attestation I have performed the following: I have examined & evaluated the patient, The case was reviewed & discussed with the resident, I agree w/resident's findings & plan, Exceptions are as noted - HPI HPI: 01/22/18 13:07 42y F no other pmhx presents with complaint of vaginal spotting, currently at 5 weeks gestatioin without abdominal pain, f/c, n/v. back pain exam noted for soft nontender abdomen will obtain Beta, tvus - Physicial Exam PE: 01/22/18 15:10 see above - Medical Decision Making 01/22/18 15:09 beta at 6k US noted for gestational sack with probable pole with no definite yolk sack or heart rate. possible aerly will have pt fu with dr. mcknight
[2018-01-22 13:27] LABS: ALBUMIN 4.1 g/dl (3.4-5.0); ALK PHOS 92 U/L (45-117); ANION GAP 7 (8-16); BILIRUBIN,TOTAL 0.3 mg/dL (0.2-1.0); BLOOD UREA NITROGEN 10 mg/dL (7-18); CALCIUM 9.7 mg/dL (8.5-10.1); CO2 24 mmol/L (21-32); CREATININE 0.6 mg/dL (0.55-1.02); GLUCOSE,RANDOM 87 mg/dL (74-106); SGOT/AST 15 U/L (15-37); SGPT/ALT 24 U/L (12-78); TOT PROT 7.6 g/dl (6.4-8.2)
[2018-01-22 15:18] VITALS: BP 122/71; PULSE 78; TEMP 98.3
== END 2018-01-22 15:25 | disposition home or self-care (01) ==
LOC: JER 11:16
DX: O26.891 Other specified pregnancy related conditions, first trimester (principal); O20.8 Other hemorrhage in early pregnancy; Z3A.01 Less than 8 weeks gestation of pregnancy
CPT/HCPCS: 36415; 76817-TC; 80053; 81003; 81015; 84702; 85025; 86850; 86900; 86901; 87086; 99284-25

== ENCOUNTER 2018-01-24 10:55 | Emergency (ER) | payer OTHER ==
[2018-01-24 11:02] VITALS: TEMP 98; BMI 26.0
[2018-01-24] MEDS ORDERED: IBUPROFEN 600 MG TABLET (FP) PO ONE ×2 (11:28→11:46)
[2018-01-24] MEDS ORDERED: SODIUM CHLORIDE 1,000 ML IV STA (11:28)
[2018-01-24] MEDS ORDERED: ACETAMINOPHEN 500 MG TABLET (FP) PO ONE (11:48)
[2018-01-24] MEDS ORDERED: ACETAMINOPHEN 325 MG TABLET (FP) ONE (11:48)
--- NOTE | 2018-01-24 11:57 | PDOC ---
*Physical Exam - Vital Signs Last Vital Signs Temp Pulse Resp BP Pulse Ox 98 F 83 18 122/56 99 01/24/18 11:00 01/24/18 11:00 01/24/18 11:00 01/24/18 11:00 01/24/18 11:00 ED Treatment Course - LABORATORY CBC & Chemistry Diagram: 01/24/18 11:27 01/24/18 12:05 Medical Decision Making - Medical Decision Making 01/24/18 11:56 42 yo F p/w lower abd pain and bleeding Recent US demonstrates no IUP, bHCG 6000. Patient states was told to return in 2 days. Pending repeat labs Laboratory Tests 01/24/18 12:05 Beta HCG, Quant 3663.3 And US Pt seen by Midlevel Provider under my direct supervision Pt interviewed and examined Ancillary studies reviewed I agree with plan as outlined by Midlevel Provider 01/24/18 15:59 01/24/18 16:05 *DC/Admit/Observation/Transfer - Referrals Referrals: Naman Castano MD [Primary Care Provider] - - Patient Instructions - Post Discharge Activity
[2018-01-24 12:12] LABS: BASO % 0.5 % (0-2.0); EOS % 1.3 % (0-4.5); HEMOGLOBIN 12.4 GM/dL (10.7-15.3); LYMPH % 24.7 % (8-40); MCH 29.7 pg (25.7-33.7); MCHC 33.6 g/dl (32.0-36.0); MEAN CELL VOLUME 88.2 fl (80-96); MEAN PLT VOLUME 9.4 fl (7.5-11.1); MONO % 6.2 % (3.8-10.2); NEUT % 67.3 % (42.8-82.8); PLATELET COUNT 213 K/MM3 (134-434); RBC 4.19 M/mm3 (3.60-5.2); RDW 13.4 % (11.6-15.6); WHITE BLOOD COUNT 7.4 K/mm3 (4.0-10.0)
[2018-01-24 12:26] LABS: URINE APPEARANCE SLCLOUDY; URINE BILIRUBIN NEGATIVE (<2.0 mg/dL); URINE BLOOD 3+ (NEGATIVE); URINE COLOR RED; URINE GLUCOSE (UA) NEGATIVE (NEGATIVE); URINE KETONE NEGATIVE (NEGATIVE); URINE LEUK ESTERASE NEGATIVE (NEGATIVE); URINE NITRITE NEGATIVE (NEGATIVE); URINE UROBILINOGEN NEGATIVE mg/dL (0.2-1.0)
[2018-01-24 12:29] LABS: HCG,QUALITATIVE URINE POSITIVE; URINE PROTEIN 2+ (NEGATIVE)
[2018-01-24 12:32] LABS: CHLORIDE 104 mmol/L (98-107); POTASSIUM 4.1 mmol/L (3.5-5.1); SODIUM 137 mmol/L (136-145)
[2018-01-24 12:33] LABS: EPI CELLS RARE /HPF (FEW); URINE MUCUS RARE
[2018-01-24 12:40] LABS: ALK PHOS 88 U/L (45-117); ANION GAP 8 (8-16); BILIRUBIN,TOTAL 0.3 mg/dL (0.2-1.0); BLOOD UREA NITROGEN 11 mg/dL (7-18); CALCIUM 9.4 mg/dL (8.5-10.1); CO2 25 mmol/L (21-32); CREATININE 0.8 mg/dL (0.55-1.02); GLUCOSE,RANDOM 92 mg/dL (74-106); SGOT/AST 16 U/L (15-37); SGPT/ALT 24 U/L (12-78); TOT PROT 7.6 g/dl (6.4-8.2)
--- NOTE | 2018-01-24 13:29 | PDOC ---
History of Present Illness - General Chief Complaint: Vaginal Bleeding Stated Complaint: VAGINAL BLEEDING, PAIN Time Seen by Provider: 01/24/18 11:08 History Source: Patient Exam Limitations: No Limitations - History of Present Illness Travel History: No Initial Comments: 01/24/18 13:00 42-year-old female presents to the ED with complaints of lower abdominal pain along with vaginal bleeding which has increased since yesterday. Patient was seen here 2 days ago and very to confirmation of as per request from patient's [facility]. Patient had an ultrasound which showed no IUP and had a beta count of 6000. Patient states was told to return in 2 days. Patient states no low back pain passage of large clots, urinary complaints, or fever. Timing/Duration: reports: getting worse Quality: reports: mild, cramping Abdominal Pain Onset Location: reports: suprapubic Pain Radiation: reports: no radiation Activities at Onset: reports: none Aggravating Factors: improves with: None Alleviating Factors: improves with: None Past History - Travel Traveled outside of the country in the last 30 days: No - Past Medical History Allergies/Adverse Reactions: Allergies Allergy/AdvReac Type Severity Reaction Status Date / Time No Known Drug Allergies Allergy Verified 01/24/18 14:24 SEAFOOD Allergy Difficulty Uncoded 01/24/18 14:11 Breathing Home Medications: Ambulatory Orders Vit No.130/Iron/Folic [ Vitamins] 1 each PO DAILY 07/01/17 Acetaminophen [Tylenol -] 1,000 mg PO TID PRN #30 tablet 01/24/18 Asthma: No Cancer: No Cardiac Disorders: No COPD: No DVT: No Diabetes: No HTN: No Seizures: No Thyroid Disease: No - Reproductive History (#): 3 Para: 1 Spontaneous : 0 - Suicide/Smoking/Psychosocial Hx Smoking Status: No Smoking History: Never smoked Have you smoked in the past 12 months: No Number of Cigarettes Smoked Daily: 0 Hx Alcohol Use: No Drug/Substance Use Hx: No Substance Use Type: None Hx Substance Use Treatment: No Patient Lives Alone: No Lives with/in: spouse/SO Review of Systems - Review of Systems Able to Perform ROS?: No Constitutional: No: Symptoms Reported HEENTM: No: Symptoms Reported Respiratory: No: Symptoms reported Cardiac (ROS): No: Symptoms Reported ABD/GI: Yes: Abdominal cramping : Yes: Discharge Musculoskeletal: No: Symptoms Reported Integumentary: No: Symptoms Reported Neurological: No: Symptoms reported Endocrine: No: Symptoms Reported Hematologic/Lymphatic: No: Symptoms Reported *Physical Exam - Vital Signs Last Vital Signs Temp Pulse Resp BP Pulse Ox 98 F 83 18 122/56 99 01/24/18 11:00 01/24/18 11:00 01/24/18 11:00 01/24/18 11:00 01/24/18 11:00 - Physical Exam General Appearance: Yes: Nourished, Appropriately Dressed. No: Apparent Distress HEENT: negative: Pale Conjunctivae Neck: positive: Normal Thyroid, Supple Respiratory/Chest: positive: Lungs Clear, Normal Breath Sounds. negative: Respiratory Distress, Accessory Muscle Use Cardiovascular: positive: Regular Rhythm, Regular Rate. negative: Murmur Female Pelvic Exam: positive: cervical os closed, vaginal bleeding (bright red moderate amount) Gastrointestinal/Abdominal: positive: Normal Bowel Sounds, Soft, Tenderness ( suprapubic). negative: Distended Extremity: positive: Normal Capillary Refill. negative: Pedal Edema Integumentary: positive: Normal Color, Warm, Moist Neurologic: positive: Motor Strength 5/5 (ambulatory) ED Treatment Course - LABORATORY CBC & Chemistry Diagram: 01/24/18 11:27 01/24/18 12:05 - ADDITIONAL ORDERS Additional order review: Laboratory Results 01/24/18 01/24/18 01/24/18 12:05 11:49 11:27 Sodium 137 Potassium 4.1 Chloride 104 Carbon Dioxide 25 Anion Gap 8 BUN 11 Creatinine 0.8 Creat Clearance w eGFR > 60 Random Glucose 92 Calcium 9.4 Total Bilirubin 0.3 AST 16 ALT 24 Alkaline Phosphatase 88 Total Protein 7.6 Albumin 4.0 Beta HCG, Quant Cancelled Urine Color Red Urine Appearance Slcloudy Urine pH 6.0 Ur Specific [place] 1.013 Urine Protein 2+ H Urine Glucose (UA) Negative Urine Ketones Negative Urine Blood 3+ H Urine Nitrite Negative Urine Bilirubin Negative Urine Urobilinogen Negative Ur Leukocyte Esterase Negative Urine WBC (Auto) None Urine RBC (Auto) 990 Ur Epithelial Cells Rare Urine Mucus Rare Urine HCG, Qual Positive 01/24/18 11:27 RBC 4.19 MCV 88.2 MCHC 33.6 RDW 13.4 MPV 9.4 Neutrophils % 67.3 Lymphocytes % 24.7 Monocytes % 6.2 Eosinophils % 1.3 Basophils % 0.5 - RADIOLOGY Radiology Studies Ordered: Category Date Time Status TRANSVAGINAL US PREG [US] Stat Ultrasound 01/24/18 11:49 Ordered - Medications Given in the ED: ED Medications Discontinued Medications Generic Name Dose Route Start Last Admin Trade Name Freq PRN Reason Stop Dose Admin Ibuprofen 600 mg 01/24/18 11:28 01/24/18 12:00 Motrin - PO 01/24/18 11:29 600 mg ONCE ONE Administration Medical Decision Making - Medical Decision Making 01/24/18 13:00 Patient complains increasing vaginal bleeding abdominal and suprapubic pain. Patient states was here 2 days ago was told to return in 2 days. States symptoms worsen including pain along with bleeding. Patient ordered labs, beta hCG, Tylenol and ultrasound. 01/24/18 13:31 Laboratory Tests 01/22/18 01/24/18 01/24/18 12:05 11:27 11:27 WBC 7.4 D Hgb 12.4 D 12.4 Hct 37.0 Sodium Random Glucose AST ALT Beta HCG, Quant Urine Protein 2+ H Urine Blood 3+ H Urine Nitrite Negative Ur Leukocyte Esterase Negative Urine RBC (Auto) 990 Urine HCG, Qual Positive 01/24/18 12:05 WBC Hgb Hct Sodium 137 Random Glucose 92 AST 16 ALT 24 Beta HCG, Quant Pending Urine Protein Urine Blood Urine Nitrite Ur Leukocyte Esterase Urine RBC (Auto) Urine HCG, Qual 01/24/18 14:20 Laboratory Tests 01/24/18 12:05 Beta HCG, Quant 3663.3 Laboratory Tests 01/22/18 12:05 Beta HCG, Quant 6875.7 Ultrasound shows irregular intrauterine fluid filled sac with no definite pole yolk sac appears smaller since prior exam and may be blood. The constellation of findings suggestive of early failed early and miscarriage. Clinical correlation and clinical follow-up is recommended. Patient is to follow-up with [facility]. *DC/Admit/Observation/Transfer Diagnosis at time of Disposition: Threatened - Discharge Dispostion Disposition: HOME Condition at time of disposition: Good - Prescriptions Prescriptions: Acetaminophen [Tylenol -] 1,000 mg PO TID PRN #30 tablet PRN Reason: Pain - Referrals Referrals: Naman Castano MD [Primary Care Provider] - Trina Prescott MD [Staff Physician] - - Patient Instructions Printed Discharge Instructions: DI for Threatened Additional Instructions: Please follow-up with your [facility]. May take Tylenol for discomfort. If you develop severe abdominal pain or heavy bleeding please return to the ED.. - Post Discharge Activity
[2018-01-24 16:45] VITALS: BP 121/73; PULSE 84
== END 2018-01-24 16:45 | disposition home or self-care (01) ==
LOC: JER 10:55
PROC: 3E0337Z Introduction of Electrolytic and Water Balance Substance into Peripheral Vein, Percutaneous Approach (ICD-10-PCS; principal; 2018-01-24)
DX: O26.891 Other specified pregnancy related conditions, first trimester (principal); Z3A.00 Weeks of gestation of pregnancy not specified; O20.0 Threatened abortion
CPT/HCPCS: 36415; 76817-TC; 80053; 81003; 81015; 84702; 84703; 85025; 99284-25; J7030

== ENCOUNTER 2018-04-10 11:38 | Emergency (ER) | payer OTHER ==
[2018-04-10 11:57] VITALS: BP 130/81; PULSE 75; TEMP 98.3; BMI 25.8
[2018-04-10] MEDS ORDERED: IBUPROFEN 600 MG TABLET (FP) PO ONE ×2 (13:20→13:28)
--- NOTE | 2018-04-10 13:24 | PDOC ---
History of Present Illness - General Chief Complaint: Injury Stated Complaint: INJURY Time Seen by Provider: 04/10/18 12:58 History Source: Patient Exam Limitations: No Limitations - History of Present Illness Initial Comments: 04/10/18 13:20 42 year old with no past medical history, surgical history of x 1, presents with injury to right ankle after trip and fall today while walking on the street. Denies headstrike, dizziness before and after fall. Occurred: reports: just prior to arrival Severity: reports: moderate Pain Location: reports: lower extremity Method of Injury: Yes: fall Modifying Factors: improves with: immobilization, rest Loss of Consciousness: no loss of consciousness Associated Symptoms (Fall): denies symptoms Past History - Travel Traveled outside of the country in the last 30 days: No Close contact w/someone who was outside of country & ill: No - Past Medical History Allergies/Adverse Reactions: Allergies Allergy/AdvReac Type Severity Reaction Status Date / Time No Known Drug Allergies Allergy Verified 04/10/18 11:58 SEAFOOD Allergy Difficulty Uncoded 04/10/18 11:58 Breathing Home Medications: Ambulatory Orders Ibuprofen [Advil -] 600 mg PO TID #21 tablet 04/10/18 Asthma: No Cancer: No Cardiac Disorders: No COPD: No DVT: No Diabetes: No HTN: No Seizures: No Thyroid Disease: No - Reproductive History (#): 3 Para: 1 Therapeutic (s) & number: No Spontaneous : 0 - Suicide/Smoking/Psychosocial Hx Smoking Status: No Smoking History: Never smoked Have you smoked in the past 12 months: No Number of Cigarettes Smoked Daily: 0 Hx Alcohol Use: No Drug/Substance Use Hx: No Substance Use Type: None Hx Substance Use Treatment: No Trauma Specific PMHX - Complaint Specific PMHX Arthritis: No Back Injury: No Neck Injury: No Review of Systems - Review of Systems Able to Perform ROS?: Yes Is the patient limited Faroese proficient: No Constitutional: No: Chills, Fever, Night Sweats, Weakness Respiratory: Yes: Cough, Orthopnea, Shortness of Breath Cardiac (ROS): No: Lightheadedness, Palpitations ABD/GI: No: Poor Appetite, Indigestion : No: Burning, Hematuria, Incontinence Musculoskeletal: Yes: Other (right ankle swelling and pain) Integumentary: No: Bruising, Erythema, Flushing Neurological: No: Headache, Numbness, Paresthesia *Physical Exam - Vital Signs Last Vital Signs Temp Pulse Resp BP Pulse Ox 98.3 F 75 18 130/81 98 04/10/18 11:55 04/10/18 11:55 04/10/18 11:55 04/10/18 11:55 04/10/18 11:55 - Physical Exam General Appearance: Yes: Nourished, Appropriately Dressed HEENT: positive: EOMI, JORGE, TMs Normal, Pharynx Normal Neck: positive: Supple. negative: Lymphadenopathy (R), Lymphadenopathy (L) Respiratory/Chest: positive: Lungs Clear, Normal Breath Sounds Cardiovascular: positive: Regular Rhythm, Regular Rate, S1, S2 Extremity: positive: Normal Capillary Refill, Normal Inspection, Other (right lateral malleoulus with swelling and tenderness ) Integumentary: positive: Swelling. negative: Bruising Neurologic: positive: feeder tender II-XII NML intact, Fully Oriented, Alert Medical Decision Making - Medical Decision Making 04/10/18 13:27 42 year old female with swelling and pain to right ankle after fall today xray and analgesia ordered 04/10/18 15:01 wet read by me negative for fracture, camryn wrap, cast shoe and crutches, follow up with orthopedic 04/10/18 19:[address] Roman negative for fracture, no other intervention needed *DC/Admit/Observation/Transfer Diagnosis at time of Disposition: Right ankle sprain Qualifiers: Encounter type: initial encounter Involved ligament of ankle: unspecified ligament Qualified Code(s): S93.401A - Sprain of unspecified ligament of right ankle, initial encounter - Discharge Dispostion Disposition: HOME Condition at time of disposition: Good Decision to Admit order: No - Prescriptions Prescriptions: Ibuprofen [Advil -] 600 mg PO TID #21 tablet - Referrals Referrals: Naman Castano MD [Primary Care Provider] - Jose Angel Benton MD [Staff Physician] - - Patient Instructions Printed Discharge Instructions: DI for Ankle Sprain Additional Instructions: Activity as tolerated. Use camryn wrap when up and about, remove for sleep Please elevate at rest, apply ice compress for 20 minutes 3 to 4 times daily Call ortho for follow up appointment - Post Discharge Activity Forms/Work/School Notes: Back to Work
== END 2018-04-10 15:10 | disposition home or self-care (01) ==
LOC: JERFT 11:38 → FER 11:38 → JERFT 15:10
DX: S93.401A Sprain of unspecified ligament of right ankle, initial encounter (principal); W01.0XXA Fall on same level from slipping, tripping and stumbling without subsequent striking against object, initial encounter; Y93.89 Activity, other specified; Y92.89 Other specified places as the place of occurrence of the external cause
CPT/HCPCS: 73610-TC-RT-FY; 73630-TC-RT-FY; 99281-25

== ENCOUNTER 2021-12-21 04:23 | Day surgery (SDC) | payer BC, OTHER ==
[2021-12-20 09:09] VITALS: BMI 27.6
[~2021-12-21 04:23] MED LIST: DEXAMETHASONE SOD PHOSPHATE 10 MG/1 ML VIAL IVPUSH ONE
[2021-12-21] MEDS ORDERED: LIDOCAINE HCL 1% PRESERVATIVE FREE - 30ML VIAL IJ ONE (11:58)
[2021-12-21] MEDS ORDERED: DEXAMETHASONE SOD PHOSPHATE 10 MG/1 ML VIAL IVPUSH ONE (12:03)
[2021-12-21 12:56] VITALS: BP 118/73; PULSE 72; TEMP 98
== END 2021-12-21 12:50 | disposition home or self-care (01) ==
LOC: JASU-SURG 04:23
PROVIDERS: ATTEND Pain Medicine Pain Medicine
PROC: 3E0R33Z Introduction of Anti-inflammatory into Spinal Canal, Percutaneous Approach (ICD-10-PCS; 2021-12-21)
PROC: 3E0R3BZ Introduction of Anesthetic Agent into Spinal Canal, Percutaneous Approach (ICD-10-PCS; principal; 2021-12-21 09:00)
DX: M54.12 Radiculopathy, cervical region (principal)
CPT/HCPCS: 76000-TC-FY; 81025; J1100

== ENCOUNTER 2022-05-20 04:45 | Day surgery (SDC) | payer BC, OTHER ==
[2022-05-16 12:11] VITALS: BMI 25.7
[2022-05-20] MEDS ORDERED: PROPOFOL 40 ML ONE (06:47)
[2022-05-20] MEDS ORDERED: MIDAZOLAM HCL 2 MG/2 ML SINGLE DOSE VIAL ONE (07:01)
[2022-05-20] MEDS ORDERED: ONDANSETRON 4 MG/2 ML VIAL IVPUSH PRN (07:16)
[2022-05-20] MEDS ORDERED: LACTATED RINGERS SOLUTION 1,000 ML IV SCH (07:30)
[2022-05-20] MEDS ORDERED: LIDOCAINE HCL/PF (2%) 40 MG/2 ML VIAL ONE (07:42)
[2022-05-20] MEDS ORDERED: SUCCINYLCHOLINE CHLORIDE 200 MG/10 ML SYRINGE ONE (07:43)
[2022-05-20] MEDS ORDERED: PROPOFOL 20 ML ONE (07:50)
[2022-05-20] MEDS ORDERED: IBUPROFEN 400 MG TABLET (FP) PO PRN (07:53)
[2022-05-20] MEDS ORDERED: ACETAMINOPHEN 325 MG TABLET (FP) PO PRN (07:53)
[2022-05-20] MEDS ORDERED: ONDANSETRON 4 MG/2 ML VIAL ONE (08:38)
[2022-05-20] MEDS ORDERED: DEXAMETHASONE SOD PHOSPHATE 4 MG/1 ML VIAL ONE (08:38)
[2022-05-20 14:53] VITALS: RESP 20; TEMP 97.5
[2022-05-20 14:57] VITALS: BP 110/70; PULSE 62
== END 2022-05-20 10:37 | disposition home or self-care (01) ==
LOC: JASU-SURG 04:45
PROVIDERS: ATTEND Obstetrics & Gynecology
PROC: 0UJD8ZZ Inspection of Uterus and Cervix, Via Natural or Artificial Opening Endoscopic (ICD-10-PCS; 2022-05-20)
PROC: 0UB98ZZ Excision of Uterus, Via Natural or Artificial Opening Endoscopic (ICD-10-PCS; principal; 2022-05-20 07:30)
PROC: 0UDB7ZX Extraction of Endometrium, Via Natural or Artificial Opening, Diagnostic (ICD-10-PCS; 2022-05-20 07:30)
DX: D25.0 Submucous leiomyoma of uterus (principal); N84.0 Polyp of corpus uteri
CPT/HCPCS: 81025; 88305-TC; 94760